=== PATIENT | female | born 1945 | race Caucasian/White ===

== ENCOUNTER 2017-12-21 08:15 | Emergency (ER) | END 2017-12-21 13:19 | disposition home or self-care (01) ==

== ENCOUNTER 2019-01-27 09:27 | Emergency (ER) | payer MEDICARE, OTHER ==
[~2019-01-27] VITALS: Ht 162.6 cm; Wt 64.0 kg
[~2019-01-27 09:27] MED LIST: CEPH-443 PO; CIPR500T4 PO; PHEN-538 PO; SULF1TAB31 PO
[2019-01-27 09:34] VITALS: BP 125/78; PULSE 66; RESP 18; Ht 162.6 cm; Wt 64.0 kg
== END 2019-01-27 11:33 | disposition home or self-care (01) ==
LOC: FTE 09:27
DX: N39.0 Urinary tract infection, site not specified (principal); Z85.3 Personal history of malignant neoplasm of breast
CPT/HCPCS: 81003; 99283

== ENCOUNTER 2019-02-15 09:47 | Emergency (ER) | payer MEDICARE, OTHER ==
[~2019-02-15] VITALS: Ht 160 cm; Wt 62.6 kg
[~2019-02-15 09:47] MED LIST changes: +ACET500C5 PO; +MELO7.5T38 PO
[2019-02-15 09:49] VITALS: RESP 18; Ht 160 cm; Wt 62.6 kg
[2019-02-15 11:49] VITALS: BP 162/70; PULSE 60
== END 2019-02-15 12:07 | disposition home or self-care (01) ==
LOC: FTE 09:47
DX: M79.605 Pain in left leg (principal); Z85.3 Personal history of malignant neoplasm of breast
CPT/HCPCS: 99283